=== PATIENT | female | born 1965 | race Caucasian/White ===

== ENCOUNTER 2024-11-14 11:20 | Inpatient (IN) ==
[2024-11-14 12:28] LABS: Hematocrit (blood only) 47.2 % (37.0-47.0); Hemoglobin 16.2 g/dl (12.0-16.0); Immature Granulocytes # (auto) 0.34 K/uL (0.01-0.20); Immature Granulocytes % (auto) 2.3 %; Mean Corpuscular Hemoglobin 29.0 pg (25.0-34.0); Mean Corpuscular Volume 84.6 fL (80.0-100.0); Platelet Count 341 K/uL (130-400); RDW Standard Deviation 41.0 fL (36.4-46.3); Red Blood Count 5.58 M/uL (4.20-5.40); White Blood Count 14.86 K/ul (4.8-10.8)
[2024-11-14 12:47] LABS: Alanine Aminotransferase 23.0 U/L (7-52); Albumin Globulin Ratio 1.3 (0.9-2); Alkaline Phosphatase 117.0 U/L (34-104); Anion Gap 6.0 (3-11); Bilirubin,Total 0.8 mg/dl (0.2-1.0); Blood Urea Nitrogen 32.0 mg/dl (6-23); Calcium 10.0 mg/dl (8.6-10.3); Carbon Dioxide 30.0 mmol/L (21-32); Chloride 99.0 mmol/L (98-107); Creatinine Clr Calc Pharmacy 84.4 ml/min; Globulin 3.3 gm/dl (2.5-4.0); Glucose 231.0 mg/dl (70-99(Fasting)); Potassium 4.5 mmol/L (3.5-5.1); Sodium 135.0 mmol/L (136-145); Total Protein 7.6 gm/dl (6.0-8.3)
[2024-11-14] MEDS ORDERED: VANCOMYCIN CONSULT ACTIVE PRN ×2 (13:14→17:18)
--- NOTE | 2024-11-14 13:18 | XRay Report ---
XR toe(s) RT min 2V CLINICAL HISTORY: great toe, worsening infection COMPARISON: 11/06/2024 FINDINGS: There are atherosclerotic calcifications. No fracture or dislocation. No evidence of osteo myelitis seen. No radiopaque foreign body. IMPRESSION: No osteomyelitis seen. ACT 112: Negative or not required by law. Electronically signed by: Aric Rose M.D. 11/14/2024 1:16 PM
--- NOTE | 2024-11-14 13:23 | Emergency Department Note ---
Impression & Plan Infection of great toe, Failure of outpatient treatment ED Provider Note CHIEF COMPLAINT: Ongoing infection in right great toe x 1 week HISTORY OF PRESENT ILLNESS: Patient is a 59-year-old female with past medical history significant for poorly controlled insulin requiring diabetes, with associated neuropathy, nephropathy and retinopathy, depression, hypothyroidism, dyslipidemia, hypertension, among other chronic medical problems who is referred to the emergency department by wound care for evaluation of continued infection of her right great toe. She was seen and evaluated here in our emergency department 8 days ago for the same complaint. She was thoroughly evaluated at that time with labs and x-ray, treated with IV cefepime and admission was considered, however after being seen by the hospitalist, patient was discharged on cefdinir, with outpatient podiatric appointment. She saw Dr. Thurston with podiatry on 11/07, he performed an I&D, placed her in a postoperative shoe and referred to wound care. Culture was obtained which grew a pansensitive staph lugdunensis. Patient reports she has been taking the antibiotics as prescribed and performing wound care as instructed. She has continued to feel ill, documented fevers as high as 101.3 yesterday. She notes pain in the foot that radiates up the right daugherty. Blood sugars have continued to run in the 300s and are poorly controlled. She was seen by LEILANI Wynn at wound care today and referred to the ED for IV antibiotics/possible admission. REVIEW OF SYSTEMS: Review of systems as per HPI. All other systems reviewed were negative. 10 systems reviewed. PMH: External medical records are reviewed and summarized as above/below. See Problem List. SOCIAL HISTORY: Patient lives at home. PHYSICAL EXAM: Vital Signs: Reviewed Nurse's notes. GENERAL: Nontoxic-appearing 59-year-old female who is awake and alert and laying on the gurney in no acute distress. HEART: Regular rate and rhythm. LUNGS: Clear to auscultation. INTEGUMENTARY: Examination of the right great toe note erythema and swelling of the dorsum of the toe, including the cuticle and the nailbed. The medial portion of the nail has been removed. There is some generalized erythema and mucopurulent discharge present. No lymphangitic streaking. No significant swelling of the foot. The right lower extremity is neurovascularly intact. EMERGENCY DEPARTMENT COURSE: The patient was seen and assessed as above. Prior records including ED visit, podiatry evaluation and wound care visit from today all reviewed. She was referred back to the ED for continued infection despite 8 days of appropriate antibiotics and prior debridement. IV lock was initiated. Laboratory studies, CMP, lactate and procalcitonin levels blood cultures were obtained. Repeat x-ray of the right foot was performed. Zosyn and vancomycin ordered after discussion with ED pharmacist. Diagnostics, as interpreted by me: Laboratory studies: Moderately elevated white count at 14,800, left shift noted. No significant electrolyte imbalance requiring correction, no FABIAN. No transaminitis. Lactate is not elevated. Procalcitonin level is normal. Imaging studies: X-rays of the right great toe showed no evidence for osteomyelitis. Patient reassessed and laboratory and diagnostic imaging studies reviewed with her. I did recommend admission/observation and she was agreeable. Patient reviewed with ED telephonic case manager, [facility] Chronic conditions affecting care: Poorly controlled diabetes with neuropathy. Differential diagnosis: Differential diagnoses entertained includes cellulitis, abscess, osteomyelitis, among others. Past Med/Surg History Problem List Failure of outpatient treatment (Acute) Infection of great toe (Acute) Abnormal ankle brachial index (DIMITRIS) (Acute) Abscess of right foot Diabetic ulcer of right great toe (Acute) Cellulitis of toe of right foot (Acute) Lymphangitis (Acute) Infection of toe (Acute) Gait instability Loss of protective sensation of skin of foot Medical History Obesity Hypertension Dyslipidemia Type 1 diabetes mellitus Diabetic peripheral neuropathy associated with type 1 diabetes mellitus Diabetic retinopathy associated with type 1 diabetes mellitus Diabetic nephropathy associated with type 1 diabetes mellitus Family history of premature coronary artery disease Depression Hypothyroidism Surgical History History of hysterectomy Family History Father Diabetes Heart disease Mother Diabetes Heart disease Social History Smoking Status: Never smoker Hx Alcohol Use: No Hx Substance Use: No Preferred Language: Maltese marital status: / Current Living Situation: Alone current occupational status: unemployed Feels Safe at Home: Yes caffeine: No during the past year weight has: decreased > 10 lbs Seatbelt Use: always Allergies Allergies Allergy/AdvReac Type Severity Reaction Status Date / Time amoxicillin [From Augmentin] AdvReac Vomiting Verified 11/14/24 10:08 clavulanic acid AdvReac Vomiting Verified 11/14/24 10:08 [From Augmentin] Home Meds Home Medications Medication Instructions Recorded Confirmed aspirin 81 mg tablet,delayed 81 mg PO QAM 04/23/19 11/14/24 release betamethasone valerate 0.1 % 1 applic topical BID PRN Rash 04/23/19 11/14/24 topical cream acetaminophen 500 mg tablet 1,000 mg PO Q6H PRN Fever Or Pain 06/24/20 11/14/24 (Tylenol Extra Strength) albuterol sulfate 90 mcg/actuation 2 puff inhalation Q4H PRN sob 12/22/22 11/14/24 aerosol inhaler (Ventolin HFA) blood sugar diagnostic (Contour 12/22/22 11/14/24 Next Test Strips) blood-glucose sensor ([employer] G6 12/22/22 11/14/24 Sensor device) blood-glucose transmitter ([employer] 12/22/22 11/14/24 G6 Transmitter device) blood-glucose,door framer,cont 12/22/22 11/14/24 ([employer] G6 Photofinishing Laboratory Worker) bupropion HCl 150 mg 24 hr tablet, 150 mg PO QAM 12/22/22 11/14/24 extended release carvedilol 12.5 mg tablet 12.5 mg PO BID 12/22/22 11/14/24 docusate sodium 100 mg capsule 100 mg PO BID 12/22/22 11/14/24 fluticasone 250 mcg-salmeterol 50 1 inh inhalation BID 12/22/22 11/14/24 mcg/dose blistr powdr for inhalation (Advair Diskus) magnesium oxide 400 mg PO DAILY 12/22/22 11/14/24 omeprazole 20 mg capsule,delayed 20 mg PO DAILY 12/22/22 11/14/24 release subcutaneous insulin pump 12/22/22 11/14/24 tiotropium bromide 2.5 2 puff inhalation DAILY 12/22/22 11/14/24 mcg/actuation mist for inhalation (Spiriva Respimat) amlodipine 5 mg tablet 5 mg PO DAILY 09/28/23 11/14/24 empagliflozin 25 mg tablet 25 mg PO DAILY 01/02/24 11/14/24 (Jardiance) methocarbamol 500 mg tablet 500 mg PO TID PRN Muscle Spasm 01/02/24 11/14/24 montelukast 10 mg tablet 10 mg PO DAILY 11/14/24 11/14/24 Previous Rx's Medication Instructions Recorded atorvastatin 80 mg tablet 80 mg PO DAILY #30 tabs 01/12/23 levothyroxine 75 mcg tablet 75 mcg PO DAILY #30 tabs 09/07/23 losartan 100 mg tablet 100 mg PO DAILY #90 tabs 01/02/24 semaglutide 0.25 mg or 0.5 mg (2 0.25 mg (0.368 mL) subcut ONCE #3 04/11/24 mg/3 mL) subcutaneous pen injector mL (Ozempic) urine glucose-ketones test #100 ea 05/02/24 spironolactone 50 mg tablet 50 mg PO BID #180 tabs 07/09/24 (Aldactone) hydralazine 25 mg tablet 25 mg PO BID #180 tabs 08/06/24 pregabalin 75 mg capsule 75 mg PO TID #90 caps 10/01/24 duloxetine 60 mg capsule,delayed 60 mg PO DAILY #90 caps 10/15/24 release insulin aspart U-100 100 unit/mL 100 unit continuous subcutaneous 10/15/24 subcutaneous solution infusion DAILY #40 mL cefdinir 300 mg capsule 300 mg PO BID 10 days #20 caps 11/06/24 Results & Data (ED) Vital Signs Vital Signs - 24 hr 11/14/24 11:54 11/14/24 12:29 11/14/24 14:22 Temperature 36.3 C L Temperature Source Temporal Artery Scan Pulse Rate 63 77 Pulse Rate [Right Finger] 75 Pulse Rhythm [Right Finger] Regular Pulse Strength [Right Finger] Normal Respiratory Rate 22 Respiratory Effort / Characteristics Non-Labored Spontaneous Respiratory Depth Normal Respiratory Pattern Regular Blood Pressure 155/90 H Blood Pressure [Left Arm] 147/94 H Blood Pressure Mean 111 Blood Pressure Mean [Left Arm] 111 Blood Pressure Position [Left Arm] Lying Pulse Oximetry 95 96 Oxygen Delivery Method Room Air Room Air Sepsis New/Unexplained Change in Mental Status No Sepsis Action Taken by Nursing No Action Required 11/14/24 14:50 11/14/24 15:12 Temperature Temperature Source Pulse Rate Pulse Rate [Right Finger] 81 73 Pulse Rhythm [Right Finger] Pulse Strength [Right Finger] Respiratory Rate 20 17 Respiratory Effort / Characteristics Non-Labored Spontaneous Non-Labored Spontaneous Respiratory Depth Normal Normal Respiratory Pattern Blood Pressure Blood Pressure [Left Arm] 153/86 H 150/85 H Blood Pressure Mean Blood Pressure Mean [Left Arm] 108 106 Blood Pressure Position [Left Arm] Pulse Oximetry 96 95 Oxygen Delivery Method Room Air Room Air Sepsis New/Unexplained Change in Mental Status Sepsis Action Taken by Skilled Nursing Medications Current Medication List: was personally reviewed by me Laboratory Data Attestation: I reviewed the patient's lab results. 11/14/24 12:07 11/14/24 12:07 Lab Results 11/14/24 11/14/24 Range/Units 12:07 13:03 WBC 14.86 H (4.8-10.8) K/ul RBC 5.58 H (4.20-5.40) M/uL Hgb 16.2 H (12.0-16.0) g/dl Hct 47.2 H (37.0-47.0) % MCV 84.6 (80.0-100.0) fL MCH 29.0 (25.0-34.0) pg MCHC 34.3 (32.0-36.0) g/dL RDW Std Deviation 41.0 (36.4-46.3) fL RDW Coeff of Yesenia 13.4 (11.5-14.5) % Plt Count 341 (130-400) K/uL MPV 10.0 (9.4-12.4) fL Immature Gran % (Auto) 2.3 % Neut % (Auto) 67.2 % Lymph % (Auto) 22.2 % [place] % (Auto) 6.9 % Eos % (Auto) 0.7 % Baso % (Auto) 0.7 % Neut # (Auto) 9.98 H (1.40-6.50) K/uL Lymph # (Auto) 3.30 (1.20-3.40) K/uL [place] # (Auto) 1.03 H (0.11-0.59) K/uL Eos # (Auto) 0.10 (0.00-0.50) K/uL Baso # (Auto) 0.11 (0.00-0.20) K/uL Immature Gran # (Auto) 0.34 H (0.01-0.20) K/uL Sodium 135 L (136-145) mmol/L Potassium 4.5 (3.5-5.1) mmol/L Chloride 99 (98-107) mmol/L Carbon Dioxide 30 (21-32) mmol/L Anion Gap 6 (3-11) BUN 32 H (6-23) mg/dl Creatinine 0.82 (0.6-1.2) mg/dl Est Cr Clr Drug Dosing 84.4 ml/min eGFR 83.38 BUN/Creatinine Ratio 39.0 H (10-20) Glucose 231 H (70-99(Fasting)) mg/dl Lactate 1.4 (0.4-2.0) mmol/L Calcium 10.0 (8.6-10.3) mg/dl Total Bilirubin 0.8 (0.2-1.0) mg/dl AST 13 (13-39) U/L ALT 23 (7-52) U/L Alkaline Phosphatase 117 H (34-104) U/L Total Protein 7.6 (6.0-8.3) gm/dl Albumin 4.3 (3.4-5.0) gm/dl Globulin 3.3 (2.5-4.0) gm/dl Albumin/Globulin Ratio 1.3 (0.9-2) Procalcitonin 0.08 (0-0.5) ng/ml Administered Medications Discontinued Medications Piperacillin Sod/Tazobactam Sod (Zosyn) 4.5 gm in 100 mls @ 200 mls/hr IV NOW ONE; Protocol Stop: 11/14/24 13:43 Last Infusion: 11/14/24 15:11 Dose: Infused Documented By: Admin: 11/14/24 14:22 Dose: 200 mls/hr Documented By: [facility] [place] Vancomycin HCl 2,000 mg/ (Sodium Chloride) 540 mls @ 200 mls/hr IV NOW ONE Stop: 11/14/24 15:55 Last Admin: 11/14/24 15:11 Dose: 200 mls/hr Documented By: BEKAH Imaging Data Attestation: I personally reviewed and interpreted this imaging study as follows: Radiologist's Impression: Toe X-Ray 11/14/24 12:55 XR toe(s) RT min 2V CLINICAL HISTORY: great toe, worsening infection COMPARISON: 11/06/2024 FINDINGS: There are atherosclerotic calcifications. No fracture or dislocation. No evidence of osteomyelitis seen. No radiopaque foreign body. IMPRESSION: No osteomyelitis seen. ACT 112: Negative or not required by law. Electronically signed by: Aric Rose M.D. 11/14/2024 1:16 PM Discharge Plan Visit Data Chief Complaint: Referred by Doctor Stated Complaint: [facility] SENT ME FOR INFECTION ED Provider: Randolph Pascual ED Midlevel Provider: Elan Saucedo Discharge Problem: Infection of great toe, Failure of outpatient treatment Patient Disposition: Being Evaluated by Hospitalist Condition: Fair Forms Stand Alone Forms: My [facility] Copytele Prescriptions Prescriptions: No Action levothyroxine 75 mcg tablet 75 mcg PO DAILY Qty: 30 5RF Rx Instructions: Take one tablet by mouth once a day 30-40 minutes prior to any other oral intake. (DME) urine glucose-ketones test Strip See Rx Instructions .Route Qty: 100 2RF Rx Instructions: Check for ketones every 4 hours with high blood sugar spironolactone [Aldactone] 50 mg tablet 50 mg PO BID Qty: 180 1RF Rx Instructions: Take one tablet by mouth twice a day. hydralazine 25 mg tablet 25 mg PO BID Qty: 180 1RF Rx Instructions: Take ONE tablet by mouth twice day. pregabalin 75 mg capsule 75 mg PO TID Qty: 90 3RF Rx Instructions: Take one tablet by mouth three times a day. duloxetine 60 mg capsule,delayed release(DR/EC) 60 mg PO DAILY Qty: 90 0RF Rx Instructions: Take ONE tablet daily by mouth. insulin aspart U-100 100 unit/mL solution 100 unit continuous subcutaneous infusion DAILY Qty: 40 6RF Rx Instructions: use with insulin pump up to 120 units daily subcutaneously use as directed; bupropion HCl 150 mg tablet extended release 24 hr 150 mg PO QAM carvedilol 12.5 mg tablet 12.5 mg PO BID Rx Instructions: must administer with a meal/food (DME) Contour Next Test Strips Strip See Rx Instructions .Route Rx Instructions: As directed up to 6 times a day (DME) [employer] G6 Photofinishing Laboratory Worker Misc See Rx Instructions .Route Rx Instructions: As directed (DME) [employer] G6 Sensor Device See Rx Instructions .Route Rx Instructions: As directed (DME) [employer] G6 Transmitter Device See Rx Instructions .Route Rx Instructions: As directed docusate sodium 100 mg capsule 100 mg PO BID fluticasone propion-salmeterol [Advair Diskus] 250-50 mcg/dose blister with device 1 inh inhalation BID magnesium oxide 400 mg magnesium capsule 400 mg PO DAILY (DME) subcutaneous insulin pump Misc See Rx Instructions .Route Rx Instructions: As directed omeprazole 20 mg capsule,delayed release(DR/EC) 20 mg PO DAILY Spiriva Respimat 2.5 mcg/actuation mist 2 puff inhalation DAILY albuterol sulfate [Ventolin HFA] 90 mcg/actuation HFA aerosol inhaler 2 puff inhalation Q4H PRN (Reason: sob) methocarbamol 500 mg tablet 500 mg PO TID PRN (Reason: Muscle Spasm) atorvastatin 80 mg tablet 80 mg PO DAILY Qty: 30 5RF Rx Instructions: Take ONE tablet by mouth daily. Jardiance 25 mg tablet 25 mg PO DAILY losartan 100 mg tablet 100 mg PO DAILY Qty: 90 3RF Rx Instructions: Take one tablet by mouth once daily. amlodipine 5 mg tablet 5 mg PO DAILY Ozempic 0.25 mg or 0.5 mg (2 mg/3 mL) pen injector 0.25 mg subcut ONCE Qty: 3 5RF Rx Instructions: Inject once a week. takes on Sundays aspirin 81 mg Tablet,Delayed Release (Dr/Ec) 81 mg PO QAM betamethasone valerate 0.1 % Cream 1 applic TOPICAL BID PRN (Reason: Rash) acetaminophen [Tylenol Extra Strength] 500 mg Tablet 1,000 mg PO Q6H PRN (Reason: Fever Or Pain) cefdinir 300 mg capsule 300 mg PO BID 10 Days Qty: 20 0RF montelukast 10 mg tablet 10 mg PO DAILY Referrals Referrals: Mikki Garcia PA-C [Primary Care Provider] -
--- NOTE | 2024-11-14 14:00 | History & Physical Report ---
Date of Service November 14, 2024 Assessment & Plan (1) Infection of great toe: (2) Diabetic ulcer of right great toe: Plan: Patient is 59-year-old female with PMH HTN, dyslipidemia, DM I, hypothyroidism, GERD,asthma, obesity and others listed below presented to ER with c/o toe infection x 8 days. Failed outpatient trial oral antibiotics. Followed with podiatry and wound clinic for debridement In ER Afebrile, vital stable. WBC: 14.8, lactate WNL Right toe x-ray: No osteomyelitis seen In ER given Zosyn, vancomycin Continue Zosyn, vancomycin Obtain MRI to rule out osteomyelitis CBC, BMP in a.m. (3) Type 1 diabetes mellitus: Plan: On Insulin pump Continue insulin pump if able to supply insulin here (pt didn't have supplies) A1c: 8.0 on 03/14/24 (4) Hypertension: Plan: Continue amlodipine, carvedilol, losartan, hydralazine, spironolactone (5) Dyslipidemia: Plan: Continue atorvastatin (6) Mild persistent asthma: Plan: No natalya exacerbation Continue home inhalers (7) Hypothyroidism: Plan: Continue levothyroxine (8) Depression: Plan: Continue bupropion, duloxetine #Chronic Pain Continue pregabalin, duloxetine DVT Prophylaxis SCDs for now Admit med tele Full Code as per discussion with pt Follows with Mikik Garcia PA-C for routine care Pt was seen and care coordinated with Dr Gentile. See addendum I spent a total of 65 minutes reviewing notes, outpatient records, labs, medication, coordinating, documenting and providing care for this patient excluding time spent in the performance of separately billed services and excluding time spent by another provider/QHP. History of Present Illness Chief Complaint: Toe infection Primary Care Provider: Mikki Garcia PA-C Patient is 59-year-old female with PMH HTN, dyslipidemia, DM I, hypothyroidism, GERD,asthma, obesity and others listed below presented to ER with c/o toe infection x 8 days. Patient reports right great toe redness ongoing. Per chart review she was seen in ER on 11/06/2024 for right great toe redness. She was given a dose of IV antibiotics in the ER. Hospitalist was consulted and felt patient trial outpatient course with oral antibiotics. Saw podiatry on 11/07/2024 and had area incised and drained, medial aspect toenail removed. Was seen in wound clinic today and area was debrided. Had noted cellulitis and recommended ER evaluation. Reports BSGs have been elevated up to 300's. Denies fever/chills, diaphoresis, N/V/D/C, PISANO, dizziness, CP, SOB, cough, rhinorrhea, abdominal pain, extremity weakness, extremity edema, other rashes, urinary symptoms. Allergies Allergy/AdvReac Type Severity Reaction Status Date / Time amoxicillin [From Augmentin] AdvReac Vomiting Verified 11/14/24 10:08 clavulanic acid AdvReac Vomiting Verified 11/14/24 10:08 [From Augmentin] Home Medications Medication Instructions Recorded Confirmed Type aspirin 81 mg tablet,delayed 81 mg PO QAM 04/23/19 11/14/24 History release betamethasone valerate 0.1 % 1 applic topical BID PRN Rash 04/23/19 11/14/24 History topical cream acetaminophen 500 mg tablet 1,000 mg PO Q6H PRN Fever Or Pain 06/24/20 11/14/24 History (Tylenol Extra Strength) albuterol sulfate 90 mcg/actuation 2 puff inhalation Q4H PRN sob 12/22/22 11/14/24 History aerosol inhaler (Ventolin HFA) blood sugar diagnostic (Contour 12/22/22 11/14/24 History Next Test Strips) blood-glucose sensor (Dexcom G6 12/22/22 11/14/24 History Sensor device) blood-glucose transmitter (Dexcom 12/22/22 11/14/24 History G6 Transmitter device) blood-glucose,knife cutter,cont 12/22/22 11/14/24 History (Dexcom G6 Water Systems Designer) bupropion HCl 150 mg 24 hr tablet, 150 mg PO QAM 12/22/22 11/14/24 History extended release carvedilol 12.5 mg tablet 12.5 mg PO BID 12/22/22 11/14/24 History docusate sodium 100 mg capsule 100 mg PO BID 12/22/22 11/14/24 History fluticasone 250 mcg-salmeterol 50 1 inh inhalation BID 12/22/22 11/14/24 History mcg/dose blistr powdr for inhalation (Advair Diskus) magnesium oxide 400 mg PO DAILY 12/22/22 11/14/24 History omeprazole 20 mg capsule,delayed 20 mg PO DAILY 12/22/22 11/14/24 History release subcutaneous insulin pump 12/22/22 11/14/24 History tiotropium bromide 2.5 2 puff inhalation DAILY 12/22/22 11/14/24 History mcg/actuation mist for inhalation (Spiriva Respimat) atorvastatin 80 mg tablet 80 mg PO DAILY #30 tabs 01/12/23 11/14/24 Rx levothyroxine 75 mcg tablet 75 mcg PO DAILY #30 tabs 09/07/23 11/14/24 Rx amlodipine 5 mg tablet 5 mg PO DAILY 09/28/23 11/14/24 History empagliflozin 25 mg tablet 25 mg PO DAILY 01/02/24 11/14/24 History (Jardiance) losartan 100 mg tablet 100 mg PO DAILY #90 tabs 01/02/24 11/14/24 Rx methocarbamol 500 mg tablet 500 mg PO TID PRN Muscle Spasm 01/02/24 11/14/24 History semaglutide 0.25 mg or 0.5 mg (2 0.25 mg (0.368 mL) subcut ONCE #3 04/11/24 11/14/24 Rx mg/3 mL) subcutaneous pen injector mL (Ozempic) urine glucose-ketones test #100 ea 05/02/24 11/14/24 Rx spironolactone 50 mg tablet 50 mg PO BID #180 tabs 07/09/24 11/14/24 Rx (Aldactone) hydralazine 25 mg tablet 25 mg PO BID #180 tabs 08/06/24 11/14/24 Rx pregabalin 75 mg capsule 75 mg PO TID #90 caps 10/01/24 11/14/24 Rx duloxetine 60 mg capsule,delayed 60 mg PO DAILY #90 caps 10/15/24 11/14/24 Rx release insulin aspart U-100 100 unit/mL 100 unit continuous subcutaneous 10/15/24 11/14/24 Rx subcutaneous solution infusion DAILY #40 mL cefdinir 300 mg capsule 300 mg PO BID 10 days #20 caps 11/06/24 11/14/24 Rx montelukast 10 mg tablet 10 mg PO DAILY 11/14/24 11/14/24 History Past Med/Surg History Problem List (Updated 11/14/24 @ 20:47 by Sofi Butler PA-C) Failure of outpatient treatment (Acute) Infection of great toe (Acute) Abnormal ankle brachial index (DIMITRIS) (Acute) Abscess of right foot Diabetic ulcer of right great toe (Acute) Cellulitis of toe of right foot (Acute) Lymphangitis (Acute) Infection of toe (Acute) Gait instability Loss of protective sensation of skin of foot Medical History (Updated 11/14/24 @ 20:47 by Sofi Butler PA-C) Mild persistent asthma Obesity Hypertension Dyslipidemia Type 1 diabetes mellitus Diabetic peripheral neuropathy associated with type 1 diabetes mellitus Diabetic retinopathy associated with type 1 diabetes mellitus Diabetic nephropathy associated with type 1 diabetes mellitus Family history of premature coronary artery disease Depression Hypothyroidism Surgical History History of hysterectomy Family History Father Diabetes Heart disease Mother Diabetes Heart disease Social History Smoking Status: Never smoker Hx Alcohol Use: No Hx Substance Use: No Preferred Language: Martiniquais marital status: / Current Living Situation: Alone current occupational status: unemployed Feels Safe at Home: Yes caffeine: No during the past year weight has: decreased > 10 lbs Seatbelt Use: always Review of Systems Review of Systems: All systems reviewed & are unremarkable except as noted in HPI & below Physical Exam Physical Exam: General: no distress, obese female Head: normocephalic, atraumatic Eyes: conjunctiva non-injected, anicteric ENT: normal inspection external ears, nose, mucous membranes moist Neck: supple, trachea midline Lungs: clear, no respiratory distress, no wheezing/rhonchi/rales CV: RRR, no murmur, no pretibial edema Abd: normal BS, soft, non-tender Ext: no cyanosis, no calf tenderness; Right foot: Right great toe medial aspect nail removed, dorsal and medial and lateral aspect toe with erythema, appears ulcer dorsal aspect of toe under nail bed Neuro: A&O x 3, no focal deficits noted, normal affect Skin: warm, dry Results & Data Results & Data Vital Signs (Past 12 Hours) Vital Signs Temp Pulse BP Pulse Ox O2 Del Method 11/14/24 12:29 77 11/14/24 11:54 36.3 C L 63 155/90 H 95 Room Air Laboratory Results Short CBC 11/14/24 Range/Units 12:07 WBC 14.86 H (4.8-10.8) K/ul Hgb 16.2 H (12.0-16.0) g/dl Hct 47.2 H (37.0-47.0) % Plt Count 341 (130-400) K/uL BMP 11/14/24 12:07 Sodium 135 L Potassium 4.5 Chloride 99 Carbon Dioxide 30 BUN 32 H Creatinine 0.82 Glucose 231 H Calcium 10.0 Liver Function 11/14/24 Range/Units 12:07 Total Bilirubin 0.8 (0.2-1.0) mg/dl AST 13 (13-39) U/L ALT 23 (7-52) U/L Alkaline Phosphatase 117 H (34-104) U/L Albumin 4.3 (3.4-5.0) gm/dl Diagnostic Findings Toe X-Ray 11/14/24 12:55 XR toe(s) RT min 2V CLINICAL HISTORY: great toe, worsening infection COMPARISON: 11/06/2024 FINDINGS: There are atherosclerotic calcifications. No fracture or dislocation. No evidence of osteomyelitis seen. No radiopaque foreign body. IMPRESSION: No osteomyelitis seen. ACT 112: Negative or not required by law. Electronically signed by: Aric Rose M.D. 11/14/2024 1:16 PM Supervising Physician Co-Signing Physician Notes Attending addendum: The patient was seen and examined in emergency room in presence of the family members She has been complaining of increasing pain, spreading cellulitis involving the right big toe She is status post surgery for ingrowing toenail recently and was seen by wound clinic today and was sent in to the emergency room Denies any fever and/or chills, any nausea or vomiting, any other significant symptoms On examination Lying in bed without any acute distress Afebrile and remains hemodynamically stable with blood pressure on the upper side at 153/86 Chest was clear to auscultate bilaterally HeartS1-S2, regular no murmur appreciated Abdomenbenign Extremitiesno edema Right great toe examination showed partially removal of toenail on the medial side with redness and edema underneath without any evidence of drainage, evidence of spreading cellulitis locally and it was extremely painful with movement Dorsalis pedis was not felt in the feet seem to be c without any significant symptoms of impingement Her labs and imaging studies noted X-ray did not show any evidence of osteomyelitis, wound culture was sent in Has right great toe infection scheduled with insulin-dependent diabetes and peripheral neuropathy Started with intravenous Zosyn and vancomycin and will get podiatry consult and also wound care evaluation Other significant medical conditions remained stable as mentioned above Agree with assessment plan as outlined above by Sofi Butler PA-C and take the full responsibility of care in the hospital Dr Gregoria Gentile (3) Type 1 diabetes mellitus Diabetes mellitus complication status: with kidney complications Diabetes mellitus complication detail: with microalbuminuria Qualified Code(s): E10.29 - Type 1 diabetes mellitus with other diabetic kidney complication; R80.9 - Proteinuria, unspecified (4) Hypertension Hypertension type: primary hypertension Qualified Code(s): I10 - Essential (primary) hypertension (7) Hypothyroidism Hypothyroidism type: acquired Qualified Code(s): E03.9 - Hypothyroidism, unspecified (8) Depression Depression Type: unspecified Qualified Code(s): F32.A - Depression, unspecified
[2024-11-14] MEDS: PIPERACILLIN/TAZOBACTAM 4.5 GM/100 ML BAG IV ONE (14:22)
[2024-11-14] MEDS: VANCOMYCIN HCL 2,000 MG in SODIUM CHLORIDE 0.9% 500 ML IV ONE (15:11)
[2024-11-14] MEDS ORDERED: GLUCOSE 40% GEL 15 GM TUBE PO PRN ×2 (17:18→23:55)
[2024-11-14] MEDS ORDERED: POLYETHYLENE (MIRALAX) 17 GM PACK PO PRN (17:18)
[2024-11-14] MEDS ORDERED: GLUCAGON FOR INJ 1 MG VIAL SQ PRN ×2 (17:18→23:55)
[2024-11-14] MEDS ORDERED: INSULIN ASPART PER UNIT CHARGE SC SCH (17:18)
[2024-11-14] MEDS ORDERED: ONDANSETRON INJ 2 MG/ML 2 ML VIAL IV PRN (17:18)
[2024-11-14] MEDS ORDERED: CARBOHYDRATES FOR HYPOGLYCEMIA PO PRN ×2 (17:18→23:55)
[2024-11-14] MEDS ORDERED: ALBUTEROL HFA 8 GM INHALER INH PRN (17:18)
[2024-11-14] MEDS ORDERED: PHARMACY GLYCEMIC MGMT CONSULT PRN (17:18)
[2024-11-14] MEDS ORDERED: MAGNESIUM HYDROXIDE SUSP 30 ML UDC PO PRN (17:18)
[2024-11-14] MEDS ORDERED: METHOCARBAMOL 500 MG TABLET PO PRN (17:18)
[2024-11-14] MEDS ORDERED: GLUCOSE 10 TAB/TUBE PO PRN ×2 (17:18→23:55)
[2024-11-14] MEDS ORDERED: DEXTROSE 50% 50 ML SYRINGE IV PRN ×2 (17:18→23:55)
[2024-11-14] MEDS: SODIUM CHLORIDE 0.9% 1,000 ML IV SCH (17:19)
[2024-11-14] MEDS ORDERED: INSULIN ASPART 100 UNITS/ML VIAL SC PRN (18:28)
[2024-11-14] MEDS: INSULIN, Rapid-Acting PUMP SC SCH (19:25)
[2024-11-14] MEDS: Continuous Glucose Monitor SCH (19:28)
[2024-11-14] MEDS: ACETAMINOPHEN 325 MG TAB PO PRN (20:16)
[2024-11-14] MEDS: PIPERACILLIN/TAZOBACTAM 4.5 GM/100 ML BAG IV SCH (20:16)
[2024-11-14] MEDS: SPIRONOLACTONE 25 MG TAB PO SCH (20:17)
[2024-11-14] MEDS ORDERED: LANTUS PER UNIT CHARGE SQ SCH (21:00)
[2024-11-14] MEDS: DOCUSATE SODIUM 100 MG CAP PO SCH (22:58)
[2024-11-14] MEDS: PREGABALIN 75 MG CAP PO SCH (22:58)
--- NOTE | 2024-11-15 00:02 | Communication Note ---
Date of Service: November 15, 2024 Patient requested to use her insulin pump on admission. Patient unable to reinstall insulin pump after MRI procedure. Patient amenable to basal bolus insulin subcutaneous Rx while her insulin pump is not operational.
[2024-11-15] MEDS: INSULIN ASPART PER UNIT CHARGE SC SCH (00:57)
[2024-11-15] MEDS ORDERED: VANCOMYCIN HCL 1,500 MG in SODIUM CHLORIDE 0.9% 500 ML IV SCH (01:00)
[2024-11-15] MEDS: VANCOMYCIN HCL / NSS 1,000 MG/270 ML BAG IV SCH (02:52)
[2024-11-15] MEDS: LANTUS PER UNIT CHARGE SQ STA (04:29)
[2024-11-15] MEDS: LEVOTHYROXINE SODIUM 75 MCG TABLET PO SCH (06:24)
[2024-11-15 07:37] LABS: Hematocrit (blood only) 40.8 % (37.0-47.0); Hemoglobin 13.8 g/dl (12.0-16.0); Immature Granulocytes # (auto) 0.26 K/uL (0.01-0.20); Immature Granulocytes % (auto) 2.0 %; Mean Corpuscular Hemoglobin 28.9 pg (25.0-34.0); Mean Corpuscular Volume 85.5 fL (80.0-100.0); Platelet Count 277 K/uL (130-400); RDW Standard Deviation 42.1 fL (36.4-46.3); Red Blood Count 4.77 M/uL (4.20-5.40); White Blood Count 12.96 K/ul (4.8-10.8)
[2024-11-15 07:54] LABS: Anion Gap 8 (3-11); Blood Urea Nitrogen 25 mg/dl (6-23); Calcium 8.8 mg/dl (8.6-10.3); Carbon Dioxide 27 mmol/L (21-32); Chloride 101 mmol/L (98-107); Creatinine Clr Calc Pharmacy 78.3 ml/min; Glucose 255 mg/dl (70-99(Fasting)); Potassium 4.3 mmol/L (3.5-5.1); Sodium 136 mmol/L (136-145)
--- NOTE | 2024-11-15 07:56 | Podiatry Consultation ---
Date of Consultation November 15, 2024 Assessment & Plan (1) Diabetic ulcer of right great toe: (2) Failure of outpatient treatment: Plan - X-ray results from emergency room visit 11/06/2024 and on admission 11/14/2024 reviewed with no radiographic signs of osteomyelitis and no change to the distal phalanx of the hallux noted on comparison of plain film radiographs. -MRI results of the right foot pending -Culture right great toe 11/07/2024: Staph lugdunensis. pansensitive. Continues IV vancomycin and Zosyn -Order: ESR, CRP. -Order: Noninvasive vascular studies arterial duplex and DIMITRIS right lower extremity -Order: Once daily dressing change. Cleanse wound with normal sterile saline dry and dressed with Aquacel Ag and Band-Aid. -Okay to continue weightbearing as tolerated in postop shoe to the right foot MRI results reviewed with bone marrow edema to the distal phalanx of the right hallux. ESR and CRP levels within normal limits and clinical evaluation showing no exposed bone to the distal phalanx diagnosis favors bone marrow edema from local wound and inflammation over osteomyelitis of the distal phalanx. In addition patient's clinical infection to the right great toe has significantly improved over the past 12 hours with IV vancomycin and Zosyn. Noninvasive va scular studies showing no arterial occlusion or sonographic evidence of high- grade stenosis in the right lower extremity. Patient okay for discharge from podiatry standpoint on p.o. antibiotics at this point as there is no indication for surgical debridement or amputation. That said I believe patient would benefit, with reduced risk of readmission, from remaining in the hospital overnight for continued IV antibiotic therapy wound culture results as we continue to await wound culture results from 11/14/2024 as she has shown significant clinical improvement since the time of admission. History of Present Illness Reason for Consultation: Diabetic ulcer right great toe Attending Physician: Richi Carbajal DO History of Present Illness 59-year-old female with past medical history significant for diabetes with diabe tic peripheral neuropathy presents to emergency room with increased redness and swelling of the right great toe and ongoing diabetic ulceration to the right great toe. She was initially evaluated for this condition in the emergency department 11/06/2024 where she was received 2 g IV Maxipime and was discharged with cefdinir 300 mg p.o. twice daily for 10 days. Plain film radiographs from the emergency department showed no signs of fracture, soft tissue emphysema or osteomyelitis. She was evaluated in my office the following day on 11/07/2024 with reported decreased redness and swelling to the great toe. She underwent I&D/debridement of superficial abscess exposing diabetic wound to the distal aspect of the right great toe with subcutaneous tissue exposed to the wound bed. Patient was encouraged to continue postop shoe and change dressing once daily with follow-up at the wound center. She was subsequently evaluated in the wound care center on 11/14/2024 with increased redness and swelling to the toe encouraged to report to the emergency department having failed outpatient antibiotics. On presentation to the emergency department leukocytosis with white blood count of 14.86, procalcitonin 0.07. Plain film radiographs are repeated with no radiographic signs of osteomyelitis. MRI of the right foot pending. She is initiated on IV vancomycin and Zosyn. Allergies Allergy/AdvReac Type Severity Reaction Status Date / Time amoxicillin [From Augmentin] AdvReac Vomiting Verified 11/14/24 10:08 clavulanic acid AdvReac Vomiting Verified 11/14/24 10:08 [From Augmentin] Home Medications Medication Instructions Recorded Confirmed Type aspirin 81 mg tablet,delayed 81 mg PO QAM 04/23/19 11/14/24 History release betamethasone valerate 0.1 % 1 applic topical BID PRN Rash 04/23/19 11/14/24 History topical cream acetaminophen 500 mg tablet 1,000 mg PO Q6H PRN Fever Or Pain 06/24/20 11/14/24 History (Tylenol Extra Strength) albuterol sulfate 90 mcg/actuation 2 puff inhalation Q4H PRN sob 12/22/22 11/14/24 History aerosol inhaler (Ventolin HFA) blood sugar diagnostic (Contour 12/22/22 11/14/24 History Next Test Strips) blood-glucose sensor (Dexcom G6 12/22/22 11/14/24 History Sensor device) blood-glucose transmitter (Dexcom 12/22/22 11/14/24 History G6 Transmitter device) blood-glucose,rolfer,cont 12/22/22 11/14/24 History (Dexcom G6 Hr Associate) bupropion HCl 150 mg 24 hr tablet, 150 mg PO QAM 12/22/22 11/14/24 History extended release carvedilol 12.5 mg tablet 12.5 mg PO BID 12/22/22 11/14/24 History docusate sodium 100 mg capsule 100 mg PO BID 12/22/22 11/14/24 History fluticasone 250 mcg-salmeterol 50 1 inh inhalation BID 12/22/22 11/14/24 History mcg/dose blistr powdr for inhalation (Advair Diskus) magnesium oxide 400 mg PO DAILY 12/22/22 11/14/24 History omeprazole 20 mg capsule,delayed 20 mg PO DAILY 12/22/22 11/14/24 History release subcutaneous insulin pump 12/22/22 11/14/24 History tiotropium bromide 2.5 2 puff inhalation DAILY 12/22/22 11/14/24 History mcg/actuation mist for inhalation (Spiriva Respimat) atorvastatin 80 mg tablet 80 mg PO DAILY #30 tabs 01/12/23 11/14/24 Rx levothyroxine 75 mcg tablet 75 mcg PO DAILY #30 tabs 09/07/23 11/14/24 Rx amlodipine 5 mg tablet 5 mg PO DAILY 09/28/23 11/14/24 History empagliflozin 25 mg tablet 25 mg PO DAILY 01/02/24 11/14/24 History (Jardiance) losartan 100 mg tablet 100 mg PO DAILY #90 tabs 01/02/24 11/14/24 Rx methocarbamol 500 mg tablet 500 mg PO TID PRN Muscle Spasm 01/02/24 11/14/24 History semaglutide 0.25 mg or 0.5 mg (2 0.25 mg (0.368 mL) subcut ONCE #3 04/11/24 11/14/24 Rx mg/3 mL) subcutaneous pen injector mL (Ozempic) urine glucose-ketones test #100 ea 05/02/24 11/14/24 Rx spironolactone 50 mg tablet 50 mg PO BID #180 tabs 07/09/24 11/14/24 Rx (Aldactone) hydralazine 25 mg tablet 25 mg PO BID #180 tabs 08/06/24 11/14/24 Rx pregabalin 75 mg capsule 75 mg PO TID #90 caps 10/01/24 11/14/24 Rx duloxetine 60 mg capsule,delayed 60 mg PO DAILY #90 caps 10/15/24 11/14/24 Rx release insulin aspart U-100 100 unit/mL 100 unit continuous subcutaneous 10/15/24 11/14/24 Rx subcutaneous solution infusion DAILY #40 mL cefdinir 300 mg capsule 300 mg PO BID 10 days #20 caps 11/06/24 11/14/24 Rx montelukast 10 mg tablet 10 mg PO DAILY 11/14/24 11/14/24 History Patient History Medical History (Updated 11/15/24 @ 14:23 by Aston Thurston DPM) Mild persistent asthma Obesity Hypertension Dyslipidemia Type 1 diabetes mellitus Diabetic peripheral neuropathy associated with type 1 diabetes mellitus Diabetic retinopathy associated with type 1 diabetes mellitus Diabetic nephropathy associated with type 1 diabetes mellitus Family history of premature coronary artery disease Depression Hypothyroidism Surgical History History of hysterectomy Family History Father Diabetes Heart disease Mother Diabetes Heart disease Social History Smoking Status: Never smoker Hx Alcohol Use: No Hx Substance Use: No Preferred Language: Panamanian Communication Ability: Effective 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 Denies shortness of breath or chest pain. Patient does report fever and chills this past Tuesday prior to admission. Reports mild discomfort to the right hallux. All other systems reviewed and negative unless otherwise detailed in HPI. Physical Exam Physical Exam: Const: Appears well developed and well nourished. No signs of acute distress present. CV: Extremities: No cyanosis or edema. Capillary refill time is less than 2 seconds all digits of the bilateral foot. Posterior tibial and dorsalis pedis pulses are lightly palpable bilateral. Lymph: No palpable or visible regional lymphadenopathy. Skin: No scars, rashes, lesions or ecchymosis. Neuro: Loss of protective sensation bilateral foot Psych: Mood/Affect: Mood is normal. Affect is normal. Cognition: Orientation is intact to person, place and time. Focused lower extremity musculoskeletal exam: Leg: No pain with compression of the calf muscle. Ankles: Normal to inspection and palpation. No swelling bilaterally. No tenderness bilaterally. Motor strength is intact. Range of motion pain-free and unlimited. Feet: Diabetic ulceration distal medial right hallux: Wound measures 1.3 x 2.0 x 0.2 cm. Wound bed is mixed granular and subcutaneous tissue. No active drainage. No malodor. Results & Data Vital Signs (Past 12 Hours) Vital Signs Temp Pulse Resp BP Pulse Ox O2 Del Method 11/15/24 07:25 36.8 C 72 16 141/81 H 96 Room Air 11/14/24 21:06 79 18 156/86 H 95 Room Air 11/14/24 20:28 36.9 C 75 18 189/91 H 96 Room Air Diagnostic Findings Spec: [id number] Collected: 11/07/24-1047 Received: 11/07/24-[address]: Aston Thurston, DPM Source: Toe,Right Great OV Order: Ordered: Aer/Domi Cult/Sm Procedure Result Verified Site Gram Stain Final 11/07/24-1608 Gram Stain Result Moderate WBCs Seen Few Gram Positive Cocci In Clusters Aero/Domi Cult Final 11/12/24-1057 Organism 1 Staphylococcus lugdunensis Quantity Moderate Sens Sensitivities to Follow No Anaerobes Isolated No Anaerobes Isolated +MixWound Plus Low Counts of Probable Skin Karen S. pamun RX M.I.C. --- --------- Clindamycin S <=0.25 Daptomycin S <=0.5 Erythromycin S <=0.25 Linezolid S <=1 Oxacillin S 1 Tetracycline S <=4 Trimeth/Sulfa S <=0.5/9.5 Vancomycin S 0.5 S = SENSITIVE I = INTERMEDIATE R = RESISTANT PG Care Time/CCT Total # of Minutes Spent Total Time Spent with Patient: Total time spent is greater than 50% in coordination of care (as documented) at patient's floor/unit and/or counseling patient: Coding Level of Care Code 87796 INT INP/OBS CARE 2/55MIN Diagnoses Diabetic ulcer of right great toe E11.621; L97.519 Failure of outpatient treatment Z78.9 Comment 57
[2024-11-15] MEDS ORDERED: PHARMACY GLYCEMIC MGMT CONSULT PRN (08:01)
--- NOTE | 2024-11-15 08:26 | Magnetic Resonance Report ---
EXAM: MR foot RT w/o con CLINICAL HISTORY: R/O osteomyelitis, right great toe infection x 2 weeks TECHNIQUE: MRI of the right foot was performed without intravenous contrast administration. Sequences obtained include: Sagittal T1-weighted, Sagittal T2-weighted, Coronal T1-weighted, Coronal T2-weighted, Axial T1-weighted, and Axial T2-weighted. COMPARISON: 11/06/2024 CR reviewed FINDINGS: OBX.5.1OBX.5.1.1Bones /OBX.5.1.1OBX.5.1.2 Joints:/OBX.5.1.2/OBX.5.1 Mild to moderate first metatarsophalangeal joint degenerative changes with joint narrowing and small bone hypertrophy. Mild intertarsal and tarsometatarsal joint degenerative changes. Mild first metatarsophalangeal joint effusion. Mild intertarsal joint effusion. Mild first distal phalangeal bone marrow edema. Other scanned bone marrow signal is normal. There is no evidence of fracture. Joint alignment is normal. Cartilage: The articular cartilage is preserved without thinning or defects. Tendons: The flexor, extensor, peroneal, and Achilles tendons are intact without tendinopathy, tear, or tenosynovitis. Ligaments: Mild high PD FS signal is seen in the Lisfranc ligament. All other visualized ligaments, including the plantar plate and collateral ligaments, appear intact. Muscles: Mild edematous changes are noted in the intrinsic foot muscles, which could represent early myositis. Plantar fascia: The plantar fascia is intact, with normal thickness and signal. Soft tissues: Mild soft tissue edema of the great toe is noted. Mild subcutaneous edema along the plantar aspect of the foot is observed. Neurovascular structures: The neurovascular structures are unremarkable. IMPRESSION: 1. Mild first distal phalangeal bone marrow edema, which could represent reactive bone marrow edema or early osteomyelitis; clinical correlation and contrast MRI are advised. Overlying mild soft tissue edema is also noted. 2. Mild to moderate first metatarsophalangeal joint degenerative changes. 3. Mild intertarsal and tarsometatarsal joint degenerative changes. 4. Mild first metatarsophalangeal joint effusion. 5. Mild intertarsal joint effusion. 6. Mild subcutaneous edema along the plantar aspect of the foot. 7. Grade I Lisfranc ligament sprain. Electronically signed by Chetan Shepard 11-15-2024 08:26 AM
[2024-11-15] MEDS: LOSARTAN POTASSIUM 50 MG TAB PO SCH (08:38)
[2024-11-15] MEDS: ASPIRIN 81 MG ECTAB PO SCH (08:38)
[2024-11-15] MEDS: FLUTICASONE/VILANTEROL 100/25MCG 14 PUFFS/INHALER INH SCH (08:39)
[2024-11-15] MEDS: ATORVASTATIN 40 MG TAB PO SCH (08:39)
[2024-11-15] MEDS: MAGNESIUM OXIDE 400 MG TAB PO SCH (08:39)
[2024-11-15] MEDS: MONTELUKAST SODIUM 10 MG TABLET PO SCH (08:39)
[2024-11-15] MEDS: UMECLIDINIUM BROMIDE 62.5MCG/BLISTER 7 PUFFS/INHALER INH SCH (08:40)
[2024-11-15] MEDS ORDERED: LANTUS PER UNIT CHARGE SQ SCH ×2 (09:00)
--- NOTE | 2024-11-15 10:02 | Pharmacy Report ---
Pharmacy Glycemic Short Note 2 - Date of Service November 15, 2024 - Glycemic Short BSG Results (Last 24 hours): 11/14/24 11/14/24 11/15/24 12:07 21:44 00:47 Glucose 231 H POC Glucose 123 H 188 H 11/15/24 11/15/24 11/15/24 04:31 06:39 07:30 Glucose 255 H POC Glucose 211 H 236 H OUTPATIENT ANTIDIABETIC REGIMEN: * insulin pump, jardiance 25 mg once daily, ozempic 0.25 mg SQ weekly * per 05/01 Endo note pump settings - CF 20, CR 15 (average ~170 units/day - basal 83, bolus 87 units/day) ASSESSMENT: * 59 year old admitted with DM foot ulcer. Type 1 diabetic managed on insulin pump. Pharmacy consulted for glycemic management. Patient continued on home insulin pump on admission, however had MRI last evening and pump was taken off. Patient not able to reattach insulin pump because she does not have any more supplies so agreeable to manage with SQ insulin. Was able to obtain insulin pump settings from 05/01 Endo note. Patient reports previously on Toujeo 80 units bid prior to insulin pump and has insulin at home if needed for pump failure. * Fasting BSG 236 mg/dL - given 5 units Lantus overnight, will give Lantus 50 units x 1 now. Plan to have scale on for basal at HS as unclear what needs will be. Will start novolog weight based stress 2 dosing for now. PLAN FOR INPATIENT GLYCEMIC CONTROL: * Hold outpatient oral diabetes medications * Basal insulin * Lantus 50 units x 1 now * Lantus 10-30 units HS * Bolus insulin * NovoLog per scale ACHS or Q6hrs while NPO * Goal Range: Low 110 mg/dL - High 140 mg/dL * Correction Factor: 20 mg/dL/unit * Nutritional / Prandial insulin per carb ratio of 1 unit per 8 grams CHO consumed
[2024-11-15] MEDS: LANTUS PER UNIT CHARGE SQ ONE (10:07)
--- NOTE | 2024-11-15 12:18 | Ultrasound Report ---
US arterial duplex LE RT HISTORY: 59 years-old Female Right hallux ulceration COMPARISON: Foot MRI 11/14/2024 TECHNIQUE: Multiple real-time sonographic images of the right lower extremity arterial structures wer e obtained assessing grayscale appearance, color and spectral flow FINDINGS: Calcified vessels are noted. No arterial occlusion or significantly elevated peak systolic velocities to suggest high-grade stenosis. Mostly triphasic waveforms above the level of the knee with mostly b iphasic waveforms below the knee. IMPRESSION: No arterial occlusion or sonographic evidence of high-grade stenosis. ACT 112: Negative or not required by law. The above report was generated using voice recognition software. It may contain grammatical, syntax o r spelling errors. Electronically signed by: Leodan Graham M.D. 11/15/2024 12:16 PM
--- NOTE | 2024-11-15 14:07 | Pharmacy Report ---
Pharmacy PK ABX Note - Date of Service November 15, 2024 - Assessment and Plan Assessment 59 year old F receiving vancomycin and zosyn for possible toe infection. Blood cultures pending. Foot MRI with possible early osteomyelitis. Previously in ED on 11/06/24 and received cefepime and discharged on cefdinir x 10 days. Podiatry consulted Plan Vancomycin * Loading dose: 2000 mg IV x 1 * Maintenance dose: 1000 mg IV every 12 hours * Regimen is predicted to achieve target AUC/MIHAELA of 400-600 mg/L.hr * Plan to obtain level tomorrow to assess dosing. Pharmacy will continue to follow and will adjust dose/frequency as necessary. Thank you. Pharmacy has transitioned to AUC monitoring for vancomycin. AUC/MIHAELA is the preferred PK/PD target and is associated with decreased risk of nephrotoxicity compared to traditional trough targets.
--- NOTE | 2024-11-15 14:25 | Hospitalist Progress Note ---
<Statement entered by Richi Carbajal DO - 11/15/24 15:24> I have seen and examined the patient and have discussed the case with the advance practice provider. I have reviewed the advanced practitioner's documentation, and I agree with, and take responsibility for that plan of care. Patient happy with the improvement of her toes since admission. Reviewed podiatry consultation and plans for additional studies Continue IV antibiotics Discussed further plan of care as outlined below I spent a total of 16 minutes coordinating, documenting, and providing care for this patient excluding time spent by another provider/QHP. Date of Service November 15, 2024 Assessment & Plan (1) Infection of great toe: (2) Diabetic ulcer of right great toe: Plan: Patient is 59-year-old female with PMH HTN, dyslipidemia, DM I, hypothyroidism, GERD,asthma, obesity and others listed below presented to ER with c/o toe infection x 8 days. Failed outpatient trial oral antibiotics. Followed with podiatry and wound clinic for debridement. In ER Afebrile, vital stable. WBC: 14.8, lactate WNL Right toe x-ray: No osteomyelitis seen ESR and CRP wnl MRI foot 11/14/24 - mild first distal phalangeal bone marrow edema, could represent early osteomyelitis Duplex scan RLE- No arterial occlusion or sonographic evidence of high-grade stenosis Discussed with Dr. Thurston - significant improvement on IV abx, no osteo concern based on MRI and exam. Plan for 1 more night of IV vanco and zosyn and dc on PO abx tomorrow with wound care f/u (3) Type 1 diabetes mellitus: Plan: On Insulin pump- unable to continue here Basal/bolus insulin per glycemic pharmacy for now A1c: 8.0 on 03/14/24 (4) Hypertension: Plan: Continue amlodipine, carvedilol, losartan, hydralazine, spironolactone (5) Dyslipidemia: Plan: Continue atorvastatin (6) Mild persistent asthma: Plan: No natalya exacerbation Continue home inhalers (7) Hypothyroidism: Plan: Continue levothyroxine (8) Depression: Plan: Continue bupropion, duloxetine #Chronic Pain Continue pregabalin, duloxetine DVT Prophylaxis: SQ lovenox PCP: ROMAIN Garcia Code: FULL Dispo: admitted to med/tele, anticipate dc home tomorrow Follows with Mikki Garcia PA-C for routine care Care coordinated with Dr. Carbajal. I spent a total of 45 minutes coordinating, documenting, and providing care for this patient excluding time spent in the performance of separately billed services or time spent by another provider/QHP. Admission and Anticipated Discharge Date Admission Date: November 14, 2024 Subjective Seen and examined in 387 bed 2 and follow-up for great toe infection. States that still painful but less red and swollen with IV antibiotics. Awaiting podiatry but did have MRI overnight. No fever, chills, lightheadedness, chest pain, shortness of breath, nausea, vomiting, abdominal pain, dysuria, constipation or diarrhea. Review of Systems Review of Systems: At least ten systems reviewed and negative except as noted in the HPI. Physical Exam Physical Exam: Gen: WD/WN, NAD, resting in bed comfortably, A&Ox3 HEENT: Normocephalic, atraumatic, mucous membranes moist Lung: Clear to Auscultation bilaterally Heart: Regular rate, regular rhythm Abdomen: Soft, NT, ND Extremities: + R great toe erythematous, mild edema and TTP. Decreased sensation to light touch starting at dorsal aspect of foot proximal to great toe Skin: Warm, no rash Results & Data Results & Data Vital Signs (Past 12 Hours) Vital Signs Temp Pulse Resp BP Pulse Ox O2 Del Method 11/15/24 07:25 36.8 C 72 16 141/81 H 96 Room Air Laboratory Results Short CBC 11/15/24 Range/Units 06:39 WBC 12.96 H (4.8-10.8) K/ul Hgb 13.8 (12.0-16.0) g/dl Hct 40.8 (37.0-47.0) % Plt Count 277 (130-400) K/uL BMP 11/15/24 06:39 Sodium 136 Potassium 4.3 Chloride 101 Carbon Dioxide 27 BUN 25 H Creatinine 0.88 Glucose 255 H Calcium 8.8 Diagnostic Findings Toe X-Ray 11/14/24 12:55 XR toe(s) RT min 2V CLINICAL HISTORY: great toe, worsening infection COMPARISON: 11/06/2024 FINDINGS: There are atherosclerotic calcifications. No fracture or dislocation. No evidence of osteomyelitis seen. No radiopaque foreign body. IMPRESSION: No osteomyelitis seen. ACT 112: Negative or not required by law. Electronically signed by: Aric Rose M.D. 11/14/2024 1:16 PM Foot MRI 11/14/24 14:49 EXAM: MR foot RT w/o con CLINICAL HISTORY: R/O osteomyelitis, right great toe infection x 2 weeks TECHNIQUE: MRI of the right foot was performed without intravenous contrast administration. Sequences obtained include: Sagittal T1-weighted, Sagittal T2-weighted, Coronal T1-weighted, Coronal T2-weighted, Axial T1-weighted, and Axial T2-weighted. COMPARISON: 11/06/2024 CR reviewed FINDINGS: OBX.5.1OBX.5.1.1Bones /OBX.5.1.1OBX.5.1.2 Joints:/OBX.5.1.2/OBX.5.1 Mild to moderate first metatarsophalangeal joint degenerative changes with joint narrowing and small bone hypertrophy. Mild intertarsal and tarsometatarsal joint degenerative changes. Mild first metatarsophalangeal joint effusion. Mild intertarsal joint effusion. Mild first distal phalangeal bone marrow edema. Other scanned bone marrow signal is normal. There is no evidence of fracture. Joint alignment is normal. Cartilage: The articular cartilage is preserved without thinning or defects. Tendons: The flexor, extensor, peroneal, and Achilles tendons are intact without tendinopathy, tear, or tenosynovitis. Ligaments: Mild high PD FS signal is seen in the Lisfranc ligament. All other visualized ligaments, including the plantar plate and collateral ligaments, appear intact. Muscles: Mild edematous changes are noted in the intrinsic foot muscles, which could represent early myositis. Plantar fascia: The plantar fascia is intact, with normal thickness and signal. Soft tissues: Mild soft tissue edema of the great toe is noted. Mild subcutaneous edema along the plantar aspect of the foot is observed. Neurovascular structures: The neurovascular structures are unremarkable. IMPRESSION: 1. Mild first distal phalangeal bone marrow edema, which could represent reactive bone marrow edema or early osteomyelitis; clinical correlation and contrast MRI are advised. Overlying mild soft tissue edema is also noted. 2. Mild to moderate first metatarsophalangeal joint degenerative changes. 3. Mild intertarsal and tarsometatarsal joint degenerative changes. 4. Mild first metatarsophalangeal joint effusion. 5. Mild intertarsal joint effusion. 6. Mild subcutaneous edema along the plantar aspect of the foot. 7. Grade I Lisfranc ligament sprain. Electronically signed by Chetan Shepard 11-15-2024 08:26 AM Duplex Scan Lower Extremity Artery 11/15/24 08:23 US arterial duplex LE RT HISTORY: 59 years-old Female Right hallux ulceration COMPARISON: Foot MRI 11/14/2024 TECHNIQUE: Multiple real-time sonographic images of the right lower extremity arterial structures were obtained assessing grayscale appearance, color and spectral flow FINDINGS: Calcified vessels are noted. No arterial occlusion or significantly elevated peak systolic velocities to suggest high-grade stenosis. Mostly triphasic wave forms above the level of the knee with mostly biphasic waveforms below the knee. IMPRESSION: No arterial occlusion or sonographic evidence of high-grade stenosis. ACT 112: Negative or not required by law. The above report was generated using voice recognition software. It may contain grammatical, syntax or spelling errors. Electronically signed by: Leodan Graham M.D. 11/15/2024 12:16 PM (3) Type 1 diabetes mellitus Diabetes mellitus complication detail: with microalbuminuria Diabetes mellitus complication status: with kidney complications Qualified Code(s): E10.29 - Type 1 diabetes mellitus with other diabetic kidney complication; R80.9 - Proteinuria, unspecified (4) Hypertension Hypertension type: primary hypertension Qualified Code(s): I10 - Essential (primary) hypertension (7) Hypothyroidism Hypothyroidism type: acquired Qualified Code(s): E03.9 - Hypothyroidism, unspecified (8) Depression Depression Type: unspecified Qualified Code(s): F32.A - Depression, unspecified
[2024-11-15] MEDS: ENOXAPARIN INJ 40 MG/0.4 ML SYR SQ SCH (16:40)
[2024-11-15] MEDS: LANTUS PER UNIT CHARGE SQ SCH (21:40)
[2024-11-16] MEDS: INSULIN ASPART PER UNIT CHARGE SC SCH (01:00)
[2024-11-16 07:21] VITALS: TEMP 97.9
[2024-11-16 08:05] VITALS: BP 137/70; PULSE 84; RESP 16; O2SAT 95
[2024-11-16 08:13] LABS: Hematocrit (blood only) 41.6 % (37.0-47.0); Hemoglobin 13.6 g/dl (12.0-16.0); Mean Corpuscular Hemoglobin 27.8 pg (25.0-34.0); Mean Corpuscular Volume 84.9 fL (80.0-100.0); Platelet Count 289 K/uL (130-400); RDW Standard Deviation 42.5 fL (36.4-46.3); Red Blood Count 4.90 M/uL (4.20-5.40); White Blood Count 11.77 K/ul (4.8-10.8)
[2024-11-16 08:31] LABS: Anion Gap 6.0 (3-11); Blood Urea Nitrogen 24.0 mg/dl (6-23); Calcium 9.2 mg/dl (8.6-10.3); Carbon Dioxide 28.0 mmol/L (21-32); Chloride 102.0 mmol/L (98-107); Creatinine Clr Calc Pharmacy 69.6 ml/min; Glucose 230.0 mg/dl (70-99(Fasting)); Potassium 4.1 mmol/L (3.5-5.1); Sodium 136.0 mmol/L (136-145)
[2024-11-16] MEDS: LANTUS PER UNIT CHARGE SQ SCH (09:08)
--- NOTE | 2024-11-16 10:22 | Discharge Summary ---
<Statement entered by Richi Carbajal DO - 11/16/24 11:57> I have seen and examined the patient and have discussed the case with the advance practice provider. I have reviewed the advanced practitioner's documentation, and I agree with, and take responsibility for that plan of care. Patient states doing well. Toe seems to be continuing to improved. Reviewed need for ongoing oral antibiotics and outpatient follow-up. Further discharge plans as outlined below I spent a total of 16 minutes coordinating, documenting, and providing care for this patient excluding time spent by another provider/QHP. Discharge Summary Date of Service November 16, 2024 Principal Dx & Hospital Course #1 = Principal Diagnosis (1) Infection of great toe: (2) Diabetic ulcer of right great toe: Patient is 59-year-old female with PMH HTN, dyslipidemia, DM I, hypothyroidism, GERD,asthma, obesity and others listed below presented to ER with c/o toe infection x 8 days. Failed outpatient trial oral antibiotics. Followed with podiatry and wound clinic for debridement. In ER Afebrile, vital stable. WBC: 14.8, lactate WNL Culture right great toe 11/07/2024: Staph lugdunensis. pansensitive, has been on cefdinir as outpatient Right toe x-ray: No osteomyelitis seen ESR and CRP wnl MRI foot 11/14/24 - mild first distal phalangeal bone marrow edema, could represent early osteomyelitis Duplex scan RLE- No arterial occlusion or sonographic evidence of high-grade stenosis Discussed with Dr. Thurston - significant improvement on IV abx, no osteo concern based on MRI and exam. No intervention planned. Plan for 1 more night of IV vanco and zosyn and dc on PO abx tomorrow with wound care f/u D/c on 10 days Augmentin, follow up with wound clinic this Tuesday as scheduled Wound care - Once daily dressing change. Cleanse wound with normal sterile saline dry and dressed with Aquacel Ag and Band-Aid. Activity- Okay to continue weightbearing as tolerated in postop shoe to the right foot (3) Type 1 diabetes mellitus: On Insulin pump-resume at home A1c: 8.0 on 03/14/24 Discussed importance of controlled DM for wound healing (4) Hypertension: Continue amlodipine, carvedilol, losartan, hydralazine, spironolactone (5) Dyslipidemia: Continue atorvastatin (6) Mild persistent asthma: No natalya exacerbation Continue home inhalers (7) Hypothyroidism: Continue levothyroxine (8) Depression: Continue bupropion, duloxetine #Chronic Pain Continue pregabalin, duloxetine Notes For Next Care Provider Diabetic foot ulcer great toe, no osteo or intervention needed. Dc on PO abx with close wound care follow up Medication Changes From Visit Augmention, probiotic Admission HPI Per Admitting Provider Patient is 59-year-old female with PMH HTN, dyslipidemia, DM I, hypothyroidism, GERD,asthma, obesity and others listed below presented to ER with c/o toe infection x 8 days. Patient reports right great toe redness ongoing. Per chart review she was seen in ER on 11/06/2024 for right great toe redness. She was given a dose of IV antibiotics in the ER. Hospitalist was consulted and felt patient trial outpatient course with oral antibiotics. Saw podiatry on 11/07/2024 and had area incised and drained, medial aspect toenail removed. Was seen in wound clinic today and area was debrided. Had noted ce llulitis and recommended ER evaluation. Reports BSGs have been elevated up to 300's. Denies fever/chills, diaphoresis, N/V/D/C, PISANO, dizziness, CP, SOB, cough, rhinorrhea, abdominal pain, extremity weakness, extremity edema, other rashes, urinary symptoms. Admission Exam Per Admitting Provider General: no distress, obese female Head: normocephalic, atraumatic Eyes: conjunctiva non-injected, anicteric ENT: normal inspection external ears, nose, mucous membranes moist Neck: supple, trachea midline Lungs: clear, no respiratory distress, no wheezing/rhonchi/rales CV: RRR, no murmur, no pretibial edema Abd: normal BS, soft, non-tender Ext: no cyanosis, no calf tenderness; Right foot: Right great toe medial aspect nail removed, dorsal and medial and lateral aspect toe with erythema, appears ulcer dorsal aspect of toe under nail bed Neuro: A&O x 3, no focal deficits noted, normal affect Skin: warm, dry Discharge Exam Gen: WD/WN, NAD, resting in bed comfortably, A&Ox3 HEENT: Normocephalic, atraumatic, mucous membranes moist Lung: Clear to Auscultation bilaterally Heart: Regular rate, regular rhythm Abdomen: Soft, NT, ND Extremities: + R great toe with dressing c/d/i Skin: Warm, no rash Updated Medication List Medication Instructions Recorded Confirmed Type aspirin 81 mg tablet,delayed 81 mg PO QAM 04/23/19 11/14/24 History release betamethasone valerate 0.1 % 1 applic topical BID PRN Rash 04/23/19 11/14/24 History topical cream acetaminophen 500 mg tablet 1,000 mg PO Q6H PRN Fever Or Pain 06/24/20 11/14/24 History (Tylenol Extra Strength) albuterol sulfate 90 mcg/actuation 2 puff inhalation Q4H PRN sob 12/22/22 11/14/24 History aerosol inhaler (Ventolin HFA) blood sugar diagnostic (Contour 12/22/22 11/14/24 History Next Test Strips) blood-glucose sensor ([employer] G6 12/22/22 11/14/24 History Sensor device) blood-glucose transmitter ([employer] 12/22/22 11/14/24 History G6 Transmitter device) blood-glucose,automation machine operator,cont 12/22/22 11/14/24 History ([employer] G6 Internet Marketing Manager) bupropion HCl 150 mg 24 hr tablet, 150 mg PO QAM 12/22/22 11/14/24 History extended release carvedilol 12.5 mg tablet 12.5 mg PO BID 12/22/22 11/14/24 History docusate sodium 100 mg capsule 100 mg PO BID 12/22/22 11/14/24 History fluticasone 250 mcg-salmeterol 50 1 inh inhalation BID 12/22/22 11/14/24 History mcg/dose blistr powdr for inhalation (Advair Diskus) magnesium oxide 400 mg PO DAILY 12/22/22 11/14/24 History omeprazole 20 mg capsule,delayed 20 mg PO DAILY 12/22/22 11/14/24 History release subcutaneous insulin pump 12/22/22 11/14/24 History tiotropium bromide 2.5 2 puff inhalation DAILY 12/22/22 11/14/24 History mcg/actuation mist for inhalation (Spiriva Respimat) atorvastatin 80 mg tablet 80 mg PO DAILY #30 tabs 01/12/23 11/14/24 Rx levothyroxine 75 mcg tablet 75 mcg PO DAILY #30 tabs 09/07/23 11/14/24 Rx amlodipine 5 mg tablet 5 mg PO DAILY 09/28/23 11/14/24 History empagliflozin 25 mg tablet 25 mg PO DAILY 01/02/24 11/14/24 History (Jardiance) losartan 100 mg tablet 100 mg PO DAILY #90 tabs 01/02/24 11/14/24 Rx methocarbamol 500 mg tablet 500 mg PO TID PRN Muscle Spasm 01/02/24 11/14/24 History semaglutide 0.25 mg or 0.5 mg (2 0.25 mg (0.368 mL) subcut ONCE #3 04/11/24 11/14/24 Rx mg/3 mL) subcutaneous pen injector mL (Ozempic) urine glucose-ketones test #100 ea 05/02/24 11/14/24 Rx spironolactone 50 mg tablet 50 mg PO BID #180 tabs 07/09/24 11/14/24 Rx (Aldactone) hydralazine 25 mg tablet 25 mg PO BID #180 tabs 08/06/24 11/14/24 Rx pregabalin 75 mg capsule 75 mg PO TID #90 caps 10/01/24 11/14/24 Rx duloxetine 60 mg capsule,delayed 60 mg PO DAILY #90 caps 10/15/24 11/14/24 Rx release insulin aspart U-100 100 unit/mL 100 unit continuous subcutaneous 10/15/24 11/14/24 Rx subcutaneous solution infusion DAILY #40 mL cefdinir 300 mg capsule 300 mg PO BID 10 days #20 caps 11/06/24 11/14/24 Rx montelukast 10 mg tablet 10 mg PO DAILY 11/14/24 11/14/24 History amoxicillin 875 mg-potassium 1 tab PO BID #20 tabs 11/16/24 Rx clavulanate 125 mg tablet lactobacillus combo no.11 15 1 cap PO DAILY #10 caps 11/16/24 Rx billion cell sprinkle capsule (Probiotic) Hospital Stay Data Consultations 11/14/24 13:58 ED Decision to Admit Stat 11/14/24 17:18 Consult Podiatry Routine Diagnostic Imagining Performed 11/14/24 14:49 MR foot RT w/o con Routine 11/15/24 08:23 US arterial duplex LE RT Routine Pending Results Patient Have Any Pending Studies at Discharge: Yes Discharge Instructions Given to Patient (Per Discharging Provider) MEDICATION CHANGES: Augmentin by mouth twice daily x 10 days for diabetic foot ulcer. Probiotic dailyx 10 days for GI Health. PENDING TEST RESULTS: Final blood cultures (negative to date) RECOMMENDATIONS FOR FOLLOW-UP: Follow up with PCP and wound care as scheduled. Complete antibiotic in its entirety. Continue medication regimen as scheduled aside from changes noted above. Wound care - Once daily dressing change. Cleanse wound with normal sterile saline dry and dressed with Aquacel Ag and Band-Aid Activity- Okay to continue weightbearing as tolerated in postop shoe to the right foot OTHER INSTRUCTIONS: Seek medical attention if you have: * temperature above 101 * chest pain or trouble breathing * abdominal pain, nausea, vomiting * diarrhea, dark stools or bloody stools * any unanswered questions or concerns Call 911 if symptoms are severe. Please take good care of yourself. Call if you have any questions or problems. You can reach a [facility] hospitalist on duty at [facility] 24 hours a day by calling [phone]. Total Time Total Time Spent Total Time Spent (In Minutes): 40
--- NOTE | 2024-11-16 11:31 | Podiatry Progress Note ---
Date of Service November 16, 2024 Assessment & Plan Plan Diabetic ulcer right hallux: - Culture right great toe 11/07/2024: Staph lugdunensis. pansensitive. - Culture right great toe 11/14/2024: No growth - Continues IV vancomycin and Zosyn - MRI results reviewed with bone marrow edema to the distal phalanx of the right hallux. ESR and CRP levels within normal limits and clinical evaluation showing no exposed bone to the distal phalanx diagnosis favors bone marrow edema from local wound and inflammation over osteomyelitis of the distal phalanx. - Noninvasive vascular studies showing no arterial occlusion or sonographic evidence of high-grade stenosis in the right lower extremity. - Continue once daily dressing change. Cleanse wound with normal sterile saline dry and dressed with Aquacel Ag and Band-Aid. - Okay to continue weightbearing as tolerated in postop shoe to the right foot. Patient okay for discharge from podiatry standpoint on p.o. antibiotics based off right great toe culture and sensitivity from 11/07/2024. Patient to continue once daily dressing changes with Aquacel Ag and a dry sterile dressing. Continue weightbearing in postoperative shoe. Scheduled for follow-up in the wound care center 11/21/2024. Admission and Anticipated Discharge Date Admission Date: November 14, 2024 Physical Exam Physical Exam: Const: Appears well developed and well nourished. No signs of acute distress present. CV: Extremities: No cyanosis or edema. Capillary refill time is less than 2 seconds all digits of the bilateral foot. Posterior tibial and dorsalis pedis pulses are lightly palpable bilateral. Lymph: No palpable or visible regional lymphadenopathy. Skin: No scars, rashes, lesions or ecchymosis. Neuro: Loss of protective sensation bilateral foot Psych: Mood/Affect: Mood is normal. Affect is normal. Cognition: Orientation is intact to person, place and time. Focused lower extremity musculoskeletal exam: Leg: No pain with compression of the calf muscle. Ankles: Normal to inspection and palpation. No swelling bilaterally. No tenderness bilaterally. Motor strength is intact. Range of motion pain-free and unlimited. Feet: Diabetic ulceration distal medial right hallux: Wound measures cm. Wound bed is mixed granular and subcutaneous tissue. No active drainage. No malodor. Results & Data Results & Data Vital Signs (Past 12 Hours) Vital Signs Temp Pulse Resp BP BP Pulse Ox O2 Del Method 11/16/24 08:04 36.6 C 84 16 137/70 95 Room Air 11/16/24 07:17 36.6 C 85 15 127/72 94 Room Air Laboratory Results White blood count 11.77 ESR 18 CRP less than 0.05 Diagnostic Findings US arterial duplex LE RT 11/15/2024 HISTORY: 59 years-old Female Right hallux ulceration COMPARISON: Foot MRI 11/14/2024 TECHNIQUE: Multiple real-time sonographic images of the right lower extremity arterial structures were obtained assessing grayscale appearance, color and spectral flow FINDINGS: Calcified vessels are noted. No arterial occlusion or significantly elevated peak systolic velocities to suggest high-grade stenosis. Mostly triphasic waveforms above the level of the knee with mostly biphasic waveforms below the knee. IMPRESSION: No arterial occlusion or sonographic evidence of high-grade stenosis. MRI right foot 11/14/2024: IMPRESSION: 1. Mild first distal phalangeal bone marrow edema, which could represent reactive bone marrow edema or early osteomyelitis; clinical correlation and contrast MRI are advised. Overlying mild soft tissue edema is also noted. 2. Mild to moderate first metatarsophalangeal joint degenerative changes. 3. Mild intertarsal and tarsometatarsal joint degenerative changes. 4. Mild first metatarsophalangeal joint effusion. 5. Mild intertarsal joint effusion. 6. Mild subcutaneous edema along the plantar aspect of the foot. 7. Grade I Lisfranc ligament sprain. Coding
== END 2024-11-16 12:17 | disposition home or self-care (01) | DRG 638 ==
LOC: ED 11:20 → OBSVTOIN 14:29 → INTOOBSV 14:29 → SUATTDRO 14:29 → EDINP 14:29 → 3N 17:19